=== PATIENT | male | born 1990 | race Caucasian/White ===

== ENCOUNTER 2016-09-15 21:21 | Emergency (ER) | payer BC ==
[2016-09-15 21:32] VITALS: BP 131/71
[2016-09-15] MEDS ORDERED: Oseltamivir CAP* 75 MG PO ONE ×2 (21:37→21:38)
--- NOTE | 2016-09-15 21:44 | UC ---
Respiratory Complaint HPI - HPI Summary HPI Summary: 25 yo male with about 24 hour hx of fever/chills/sever myalgias and cough nause no vomiting or diarrhea exposed to family members with flu last week - History of Current Complaint Chief Complaint: UCGeneralIllness Stated Complaint: CONGESTION COUGH FEVER Time Seen by Provider: 09/15/16 21:34 Hx Obtained From: Patient Onset/Duration: Sudden Onset Timing: Constant Severity Initially: Moderate Severity Currently: Moderate Pain Intensity: 4 - higher prior to analgesic Pain Scale Used: 0-10 Numeric Character: Cough: Nonproductive Aggravating Factors: Nothing Alleviating Factors: Nothing Associated Signs And Symptoms: Positive: Nasal Congestion - Allergies/Home Medications Allergies/Adverse Reactions: Allergies Allergy/AdvReac Type Severity Reaction Status Date / Time No Known Allergies Allergy Verified 09/15/16 21:32 Home Medications: Home Medications Modafinil TAB* [Provigil TAB*] 1 tab PO SEE INSTRUCTIONS 09/15/16 [History Confirmed 09/15/16] PMH/Surg Hx/FS Hx/Imm Hx Previously Healthy: Yes - Surgical History Surgical History: None - Family History Known Family History: Positive: Hypertension - Social History Alcohol Use: None Substance Use Type: None Smoking Status (MU): Never Smoked Tobacco - Immunization History Most Recent Influenza Vaccination: none Review of Systems Constitutional: Fatigue Skin: Negative Eyes: Negative ENT: Nasal Discharge Respiratory: Cough Cardiovascular: Negative Gastrointestinal: Negative Genitourinary: Negative Motor: Negative Neurovascular: Negative Musculoskeletal: Myalgia Neurological: Negative Psychological: Negative All Other Systems Reviewed And Are Negative: Yes Physical Exam Triage Information Reviewed: Yes Appearance: Well-Appearing, No Pain Distress, Well-Nourished Vital Signs: Initial Vital Signs Temp 100.2 F 09/15/16 21:28 Pulse 110 09/15/16 21:28 Resp 17 09/15/16 21:28 BP 131/71 09/15/16 21:28 Pulse Ox 98 09/15/16 21:28 Eye Exam: Normal Eyes: Positive: Conjunctiva Clear ENT: Positive: Pharynx normal, Nasal congestion, Nasal drainage, TMs normal. Negative: Tonsillar swelling, Tonsillar exudate, Trismus, Muffled/hoarse voice Neck: Positive: Supple, Nontender Respiratory: Positive: Lungs clear, Normal breath sounds, No respiratory distress, No accessory muscle use Cardiovascular: Positive: RRR, No Murmur Abdomen Description: Positive: Nontender, No Organomegaly, Soft. Negative: CVA Tenderness (R), CVA Tenderness (L) Bowel Sounds: Positive: Present Musculoskeletal: Positive: Strength Intact, ROM Intact, No Edema Neurological: Positive: Alert Psychological Exam: Normal Skin Exam: Normal UC Diagnostic Evaluation - Laboratory O2 Sat by Pulse Oximetry: 98 - normal/not hypoxic Respiratory Course/Dx - Differential Dx/Diagnosis Provider Diagnoses: influenza or influenza like illness Discharge - Discharge Plan Condition: Stable Disposition: HOME Prescriptions: Oseltamivir CAP* [Tamiflu CAP*] 75 mg PO BID #8 cap Patient Education Materials: Influenza (ED) Additional Instructions: rest fluids tylenol or advil recheck in 4 days if not better
== END 2016-09-15 21:51 | disposition home or self-care (01) ==
LOC: UCCORT 21:21
DX: J11.1 Influenza due to unidentified influenza virus with other respiratory manifestations (principal)
CPT/HCPCS: 99202; A9270-GY; G0463

== ENCOUNTER 2019-10-05 15:41 | Emergency (ER) | payer BC ==
--- OUTSIDE RECORDS SUMMARY | 2019-10-05 16:07 | XMS REPORT | Continuity of Care Document ---
:1990 External Reference #:[id number] Author Name Andrew Long M.D. (transmitted by agent of provider Maria Teresa Smith) Address [address] [place] [address] Problems Description No Information Available Social History Type Date Description Comments Sex Unknown Allergies, Adverse Reactions, Alerts Description No Known Drug Allergies Medications Active Medications SIG Qnty Indications Ordering Date Provider Provigil 1 tab every morning 45tabs G47.419 Andrew Long, 05/20/2014 200mg and 1/2 tab M.D. Tablets qafternoon code e Immunizations Description No Information Available Vital Signs Date Vital Result Comment 08/26/2019 5:14pm Weight 187.00 lb Height 70 inches 5'10" BMI (Body Mass Index) 26.8 kg/m2 BP Systolic 126 mmHg BP Diastolic 81 mmHg Heart Rate 56 /min O2 % BldC Oximetry 99 % Body Temperature 97.0 F [place] Score 2 Pain Level 0 04/06/2017 9:59am Weight 178.00 lb Height 70 inches 5'10" BMI (Body Mass Index) 25.5 kg/m2 BP Systolic 117 mmHg BP Diastolic 64 mmHg Heart Rate 65 /min O2 % BldC Oximetry 96 % Body Temperature 98.5 F [place] Score 15 Pain Level 0 Results Description No Information Available Procedures Description No Information Available Medical Devices Description No Information Available Encounters Description No Information Available Assessments Description No Information Available Plan of Treatment No Information Available Functional Status Description No Information Available Mental Status Description No Information Available Referrals Description No Information Available
[2019-10-05 16:15] VITALS: BP 138/73
--- NOTE | 2019-10-05 16:16 | UC ---
FLU HPI - HPI Summary HPI Summary: 28 yo male presents with flu-like symptoms. He tells me that last night he developed body aches, fatigue, and dry cough. He did not get a flu shot this year and is concerned he may have the flu. His largest concern is due to his who is 19 weeks and he does not want her to get the flu if he is positive. Has been taking OTC dayquill with good relief. Denies fever, sinus symptoms, sore throat, SOB, abdominal pain, n/v/d. - History of Current Complaint Chief Complaint: UCGeneralIllness Stated Complaint: DRY COUGH/COLD SWEATS/BODYACHES Time Seen by Provider: 10/05/19 16:16 Hx Obtained From: Patient Onset/Duration: Sudden Onset Pain Intensity: 0 - Allergy/Home Medications Allergies/Adverse Reactions: Allergies Allergy/AdvReac Type Severity Reaction Status Date / Time No Known Allergies Allergy Verified 10/05/19 16:13 Home Medications: Home Medications Modafinil TAB* [Provigil TAB*] 1 tab PO SEE INSTRUCTIONS 09/15/16 [History Confirmed 10/05/19] Acetaminophen [Tylenol] 325 mg PO ONCE 10/05/19 [History Confirmed 10/05/19] D-Methorphan/PE/Acetaminophen [Day Time Cold-Flu Relief Liq] 1 dose PO ONCE [History Confirmed 10/05/19] PMH/Surg Hx/FS Hx/Imm Hx - Additional Past Medical History Additional PMH: None - Surgical History Surgical History: None - Family History Known Family History: Positive: Hypertension - Social History Lives: With Family Alcohol Use: None Substance Use Type: None Smoking Status (MU): Never Smoked Tobacco - Immunization History Most Recent Influenza Vaccination: none Review of Systems All Other Systems Reviewed And Are Negative: No Constitutional: Positive: Fatigue, Other - Body aches Skin: Positive: Negative Eyes: Positive: Negative ENT: Positive: Negative Respiratory: Positive: Cough Cardiovascular: Positive: Negative Gastrointestinal: Positive: Negative Neurological/Mental Status: Positive: Negative Psychological: Positive: Negative Physical Exam - Summary Physical Exam Summary: GENERAL: NAD. WDWN. No pain distress. SKIN: No rashes, sores, lesions, or open wounds. HEENT: Head: AT/NC Eyes: EOM intact. Conjunctiva clear without inflammation or discharge. Ears: Hearing grossly normal. TMs intact, no bulging, erythema, or edema. Nose: Nasal mucosa pink and moist. NTTP maxillary and frontal sinus. Throat: Posterior oropharynx without exudates, erythema, or tonsillar enlargement. Uvula midline. NECK: Supple. Nontender. No lymphadenopathy. CHEST: CTAB. No r/r/w. No accessory muscle use. Breathing comfortably and in no distress. CV: RRR. Pulses intact. Cap refill <2seconds NEURO: Alert. PSYCH: Age appropriate behavior. Triage Information Reviewed: Yes Vital Signs: Initial Vital Signs Temp 99.2 F 10/05/19 16:14 Pulse 88 10/05/19 16:14 Resp 20 10/05/19 16:14 BP 138/73 10/05/19 16:14 Pulse Ox 100 10/05/19 16:14 Laboratory Tests 10/05/19 16:23 Influenza A (Rapid) Negative Influenza B (Rapid) Negative Vital Signs Reviewed: Yes Flu Course/Dx - Course Course Of Treatment: POC flu positive. Suspect viral illness. Advised continued supportive care and recheck if symptoms worsen or do not improve. - Differential Dx/Diagnosis Provider Diagnosis: Viral syndrome Discharge ED - Sign-Out/Discharge Documenting (check all that apply): Patient Departure All imaging exams completed and their final reports reviewed: No Studies - Discharge Plan Condition: Stable Disposition: HOME Patient Education Materials: Viral Syndrome (ED) Referrals: No Primary Care Phys,NOPCP [Primary Care Provider] - Additional Instructions: Your symptoms are likely from a viral infection. Viral infections do not respond to antibiotics and are limited to the treatment of symptoms. Viral infections typically run their course in 7-10 days. Drink plenty of fluids, especially if you are running any fever. Use salt water gargles several times a day. Take over the counter acetaminophen (Tylenol) or ibuprofen (Advil, Motrin) according to directions as needed for pain or fever. You may also use Chloraseptic spray or Cepacol lonzenges according to directions which contain a numbing medication and can provide some temporary relief from a sore throat. Return here or follow up with your primary care provider in 7 days if symptoms persist. - Billing Disposition and Condition Condition: STABLE Disposition: Home
[2019-10-05 16:34] LABS: Influenza A Molecular Negative (Negative); Influenza B Molecular Negative (Negative)
== END 2019-10-05 16:49 | disposition home or self-care (01) ==
LOC: UCCORT 15:41
DX: B34.9 Viral infection, unspecified (principal); R05 Cough; R53.83 Other fatigue
CPT/HCPCS: 99211; G0463

== ENCOUNTER 2019-10-07 10:23 | Emergency (ER) | payer BC ==
[2019-10-07 11:58] VITALS: BP 121/79
[2019-10-07 12:10] LABS: Influenza B Molecular POSITIVE (Negative)
--- NOTE | 2019-10-07 12:31 | UC ---
FLU HPI - HPI Summary HPI Summary: 28-year-old male presents with complaints of worsening flulike illness. He was seen at this facility on 10/05/2019 for the same and diagnosed with a viral illness. His rapid flu test was negative at that time. Patient is reporting general malaise, body aches, fever, chills, nasal congestion, sore throat, and a dry nonproductive cough for the past 3 days. States last night he developed an episode of cold sweats with nausea and 1 episode of vomiting. Patient is reporting that he is supposed to be attending the [employer] and has been told he may not return until he has been tested for COVID-19. No recent travel to endemic areas and no known contact with any persons being isolated for or testing positive for the COVID-19 virus. Denies chest pain, shortness of breath , abdominal pain, or diarrhea. - History of Current Complaint Chief Complaint: UCRespiratory Stated Complaint: VOMITING FEVER SORE THROAT Time Seen by Provider: 10/07/19 11:42 Hx Obtained From: Patient Pain Intensity: 0 - Allergy/Home Medications Allergies/Adverse Reactions: Allergies Allergy/AdvReac Type Severity Reaction Status Date / Time No Known Allergies Allergy Verified 10/07/19 11:53 Home Medications: Home Medications Modafinil TAB* [Provigil TAB*] 100 mg PO QAM 09/15/16 [History Confirmed ] Acetaminophen [Acetaminophen Extra Strength] 1,000 mg PO Q6H PRN 10/07/19 [ History Confirmed 10/07/19] Benzonatate CAP* [Tessalon 100 MG CAP*] 100 mg PO TID PRN #21 cap 10/07/19 [Rx] D-Methorphan/PE/Acetaminophen [Vicks Dayquil Cold & Flu] 2 cap PO Q6H PRN [History Confirmed 10/07/19] Modafinil TAB* [Provigil TAB*] 50 mg PO 1500 10/07/19 [History Confirmed ] PMH/Surg Hx/FS Hx/Imm Hx Previously Healthy: Yes - Denies significant PMH - Surgical History Surgical History: None - Family History Known Family History: Positive: Hypertension - Social History Occupation: Student Lives: With Family Alcohol Use: None Substance Use Type: None Smoking Status (MU): Never Smoked Tobacco - Immunization History Most Recent Influenza Vaccination: none Review of Systems All Other Systems Reviewed And Are Negative: Yes Constitutional: Positive: Fever, Chills, Fatigue Skin: Negative: Rash Eyes: Negative: Drainage, Eye Redness ENT: Positive: Sore Throat, Nasal Discharge, Sinus Congestion. Negative: Ear Ache, Sinus Pain/Tenderness Respiratory: Positive: Cough. Negative: Shortness Of Breath Cardiovascular: Negative: Chest Pain Gastrointestinal: Negative: Abdominal Pain, Vomiting, Diarrhea, Nausea Genitourinary: Positive: Negative Musculoskeletal: Positive: Myalgia Neurological/Mental Status: Positive: Headache Is Patient Immunocompromised?: No Physical Exam - Summary Physical Exam Summary: GENERAL APPEARANCE: Well developed, well nourished, alert and cooperative, and appears to be in no acute distress. EYES: Conjunctiva clear. No drainage. EARS: External auditory canals and tympanic membranes clear, hearing grossly intact. NOSE: Moderate nasal congestion with clear discharge. THROAT: Pharyngeal erythema without tonsilar inflammation, swelling, exudate, or lesions. Uvula midline. NECK: Neck supple, non-tender without lymphadenopathy. CARDIAC: Normal S1 and S2. No S3, S4 or murmurs. Rhythm is regular. There is no peripheral edema, cyanosis or pallor. Extremities are warm and well perfused. Capillary refill is less than 2 seconds. Peripheral pulses intact. LUNGS: Clear to auscultation without rales, rhonchi, wheezing or diminished breath sounds. Dry nonproductive cough. ABDOMEN: Positive bowel sounds. Soft, nondistended, nontender. No guarding or rebound. No masses or hepatosplenomegally. MUSKULOSKELETAL: ROM intact to all extremities. No joint erythema or tenderness. Normal muscular development. Normal gait. SKIN: Skin normal color, texture and turgor with no lesions or eruptions. Triage Information Reviewed: Yes Vital Signs: Initial Vital Signs Temp 98.7 F 10/07/19 11:48 Pulse 90 10/07/19 11:48 Resp 16 10/07/19 11:48 BP 121/79 10/07/19 11:48 Pulse Ox 99 10/07/19 11:48 Vital Signs Reviewed: Yes Flu Course/Dx - Course Course Of Treatment: 28-year-old male presents with complaints of worsening flulike illness. He was seen at this facility on 10/05/2019 for the same and diagnosed with a viral illness. His rapid flu test was negative at that time. Patient is reporting general malaise, body aches, fever, chills, nasal congestion, sore throat, and a dry nonproductive cough for the past 3 days. States last night he developed an episode of cold sweats with nausea and 1 episode of vomiting. Patient is reporting that he is supposed to be attending the [employer] and has been told he may not return until he has been tested for COVID-19. No recent travel to endemic areas and no known contact with any persons being isolated for or testing positive for the COVID-19 virus. Denies chest pain, shortness of breath , abdominal pain, or diarrhea. Afebrile. Vital signs stable. Patient had moderate nasal congestion with clear nasal discharge, normal TMs, pharyngeal erythema without tonsillar swelling or exudate, no cervical lymphadenopathy, clear bilateral breath sounds, dry nonproductive cough, and otherwise unremarkable exam. Rapid strep test was negative. Rapid flu test was positive for influenza B. Reviewed results with the patient and I am recommending continued symptomatic treatment for influenza at this time. Discussed with the patient that we will test for the COVID-19 virus as per his request and even though I have a very low suspicion for this we will recommend self-isolation until the test results have returned. He is to return here or follow up with primary care in 7 days if symptoms persist. Anticipatory guidance and warning symptoms were reviewed with the patient. Verbalizes understanding and agrees with plan of care. - Differential Dx/Diagnosis Differential Diagnosis/HQI/PQRI: Bronchitis, Influenza, Pneumonia, Upper Respiratory Infection, Other - COVID-19 Provider Diagnosis: Influenza B Discharge ED - Sign-Out/Discharge Documenting (check all that apply): Patient Departure All imaging exams completed and their final reports reviewed: No Studies - Discharge Plan Condition: Stable Disposition: HOME Prescriptions: Benzonatate CAP* [Tessalon 100 MG CAP*] 100 mg PO TID PRN #21 cap PRN Reason: Cough Patient Education Materials: Influenza (ED) Referrals: No Primary Care Phys,NOPCP [Primary Care Provider] - [facility] [place] [facility]FERRAL [Outside] Additional Instructions: Your flu test in the clinic today was positive for influenza B. Get plenty of rest. Drink plenty of fluids to avoid dehydration especially if you are running any fever. Take over the counter acetaminophen (Tylenol) or ibuprofen (Advil, Motrin) according to directions as needed for pain or fever. Take Tessalon Perles 1 cap every 8 hours as needed for cough. Use salt water gargles several times a day if you have a sore throat. You may also use Chloraseptic spray or Cepacol lonzenges according to directions which contain a numbing medication and can provide some temporary relief from your sore throat. Return here or follow up with primary care in 7 days if symptoms persist. I have given you the contact information for the [facility] physician referral service if you need assistance with establishing with a provider. Based on your history, exam, and flu test results I have a very low suspicion for a COVID-19 infection however we will be testing for this at your request. Because we are testing I am recommending that he maintains self isolation until your test results return. Seek immediate medical attention in the emergency room if you have fever greater than 100.5 F despite taking acetaminophen or ibuprofen, have chest pain , difficulty breathing, are unable to swallow, or have any worsening of symptoms. - Billing Disposition and Condition Condition: STABLE Disposition: Home
== END 2019-10-07 12:48 | disposition home or self-care (01) ==
LOC: UCCORT 10:23
DX: J10.1 Influenza due to other identified influenza virus with other respiratory manifestations (principal)
CPT/HCPCS: 87651; 99212; G0463; U0002